=== PATIENT | female | born 1995 | race African-American/Black ===

== ENCOUNTER 2022-01-06 09:51 | Emergency (ER) | payer OTHER ==
[2022-01-06 10:15] VITALS: BP 136/79; PULSE 83; RESP 19; TEMP 98.1; BMI 50.3
== END 2022-01-06 13:21 | disposition home or self-care (01) ==
LOC: JER 09:51 → JERFT 09:51
DX: S90.31XA Contusion of right foot, initial encounter (principal); S96.911A Strain of unspecified muscle and tendon at ankle and foot level, right foot, initial encounter
CPT/HCPCS: 73610-TC-RT-FY; 73630-TC-RT-FY; 99284-25